=== PATIENT | male | born 1985 | race African-American/Black ===

== ENCOUNTER 2022-11-26 06:23 | Emergency (ER) | payer SELFPAY ==
[~2022-11-26] VITALS: Ht 170.2 cm; Wt 92.0 kg
[2022-11-26 06:31] VITALS: TEMP 98.8; O2SAT 99
[2022-11-26] MEDS ORDERED: T3 PO (07:24)
[2022-11-26] MEDS ORDERED: IBUP-2028 PO (07:24)
[2022-11-26] MEDS ORDERED: AMOX1TAB16 PO (07:24)
[2022-11-26 07:30] VITALS: BP 119/81; PULSE 101; RESP 18
[2022-11-26] MEDS ORDERED: KETOROLAC 60MG/2ML VIAL IM ONE (07:30)
== END 2022-11-26 07:39 ==
LOC: ER 06:23
DX: K04.7 Periapical abscess without sinus (principal)
CPT/HCPCS: 96372; 99283; Z7610 ×2